=== PATIENT | female | born 1985 | race Two or more races ===

== ENCOUNTER 2023-05-04 19:54 | Inpatient (IN) | payer OTHER, BC ==
[~2023-05-04] VITALS: Ht 165.1 cm; Wt 57.2 kg
[2023-05-04 19:57] VITALS: O2SAT 99
[2023-05-04 21:00] LABS: BASOPHILS % 0.6 % (0.0-2.0); DIFFERENTIAL COMMENT 0; EOSINOPHILS % 3.2 % (0.0-5.0); HEMOGLOBIN. 12.1 g/dL (12.0-16.0); LYMPHOCYTES % 14.9 % (20.0-50.0); MEAN CORPUSCULAR HEMOGLOBIN 24.8 pg (28.0-32.0); MEAN CORPUSCULAR HGB CONC 31.8 g/dL (31.0-37.0); MEAN CORPUSCULAR VOLUME 77.9 fL (81.0-99.0); MONOCYTES % 7.1 % (2.0-8.0); NEUTROPHILS % 74.2 % (40.0-76.0); PLATELET 427 x1000/uL (130-400); RED BLOOD CELL COUNT 4.87 mill/uL (4.2-5.4); RED CELL DISTRIBUTION WIDTH 18.2 % (11.6-14.6); WHITE BLOOD COUNT 13.5 x1000/uL (4.5-11.0)
[2023-05-04 21:18] LABS: ALANINE AMINOTRANSFERASE 8 IU/L (10-49); ALBUMIN 4.3 g/dL (3.2-4.8); ASPARTATE AMINOTRANSFERASE 18 IU/L (<34); BILIRUBIN TOTAL 1.2 mg/dL (0.1-1.0); CALCIUM 9.6 mg/dL (8.7-10.4); CARBON DIOXIDE 28 mEq/L (21-32); CHLORIDE 104 mEq/L (98-107); CREATININE 0.7 mg/dL (0.6-1.0); GLUCOSE 97 mg/dL (70-105); POTASSIUM 3.9 mEq/L (3.5-5.1); PROTEIN TOTAL 6.9 g/dL (6.0-8.3); SODIUM 139 mEq/L (136-145); UREA NITROGEN BLOOD 10 mg/dL (9-23)
[2023-05-04 21:22] LABS: PARTIAL THROMBOPLASTIN TIME 28.3 sec (23.4-31.0); PROTHROMBIN TIME 10.4 sec (9.6-11.0)
[2023-05-04 21:34] LABS: HCG SCREEN NEGATIVE
[2023-05-04 21:45] LABS: TROPONIN I HIGH SENSITIVITY < 4 ng/L (3.0-34)
[2023-05-04] MEDS ORDERED: HEPARIN 5000 UNITS/ML VIAL IV ONE (22:00)
[2023-05-04] MEDS ORDERED: HEPARIN 25,000 UNITS PREMIX 250 ML IV ONE (22:00)
[2023-05-04] MEDS ORDERED: IOHEXOL-350 100 ML BOTTLE ONE (22:02)
[2023-05-04] MEDS ORDERED: MORPHINE SULFATE 4 MG/ML CPJ (NOT FOR IM USE) IV ONE (22:15)
[2023-05-04] MEDS ORDERED: HEPARIN 25,000 UNITS PREMIX 250 ML IV SCH ×2 (22:30→23:00)
[2023-05-04] MEDS ORDERED: HEPARIN BOLUS PRN aPTT 37-44 IV (22:30)
[2023-05-04] MEDS ORDERED: HEPARIN 80 UNITS/KG BOLUS IV NR (22:30)
[2023-05-04] MEDS ORDERED: HEPARIN BOLUS PRN aPTT <36 IV (22:30)
[2023-05-04] MEDS ORDERED: ONDANSETRON HCL 4MG/2ML INJ IV ONE (22:45)
[2023-05-04] MEDS ORDERED: ACETAMINOPHEN 650MG/20.3ML UDC GT PRN (23:30)
[2023-05-04] MEDS ORDERED: DOCUSATE SODIUM 100MG CAPSULE PO PRN (23:30)
[2023-05-04] MEDS ORDERED: IPRATROPIUM/ALBUTEROL 0.5-3(2.5)MG/3ML NEB HHN PRN (23:30)
[2023-05-04] MEDS ORDERED: ACETAMINOPHEN 325MG TABLET PO PRN (23:30)
[2023-05-04] MEDS ORDERED: MAGNESIUM/ALUMINUM HYDROXIDE/SIMETHICONE 30ML UDC PO PRN (23:30)
[2023-05-04] MEDS ORDERED: CLONIDINE 0.1MG TABLET PO PRN (23:30)
[2023-05-04] MEDS ORDERED: GUAIFENESIN 200MG/10ML SUGAR FREE UDC PO PRN (23:30)
[2023-05-04] MEDS ORDERED: ONDANSETRON HCL 4MG/2ML INJ IV PRN (23:30)
[2023-05-05] MEDS: KETOROLAC 15MG/ML VIAL IV PRN ×4 (01:47→20:36)
[2023-05-05 05:43] LABS: BASOPHILS % 0.5 % (0.0-2.0); DIFFERENTIAL COMMENT 0; HEMATOCRIT. 35.6 % (36.0-48.0); HEMOGLOBIN. 11.2 g/dL (12.0-16.0); MEAN CORPUSCULAR HEMOGLOBIN 23.9 pg (28.0-32.0); MEAN CORPUSCULAR HGB CONC 31.4 g/dL (31.0-37.0); MEAN CORPUSCULAR VOLUME 76.1 fL (81.0-99.0); MEAN PLATELET VOLUME 8.4 fl (7.4-10.4); MONOCYTES % 6.4 % (2.0-8.0); NEUTROPHILS % 70.1 % (40.0-76.0); PLATELET 377 x1000/uL (130-400); RED BLOOD CELL COUNT 4.68 mill/uL (4.2-5.4); RED CELL DISTRIBUTION WIDTH 18.4 % (11.6-14.6); WHITE BLOOD COUNT 13.8 x1000/uL (4.5-11.0)
[2023-05-05 06:02] LABS: ALANINE AMINOTRANSFERASE < 7 IU/L (10-49); ALBUMIN 3.9 g/dL (3.2-4.8); ASPARTATE AMINOTRANSFERASE 15 IU/L (<34); BILIRUBIN TOTAL 1.2 mg/dL (0.1-1.0); CALCIUM 8.9 mg/dL (8.7-10.4); CARBON DIOXIDE 26 mEq/L (21-32); CHLORIDE 105 mEq/L (98-107); CREATINE KINASE 49 IU/L (34-145); CREATININE 0.6 mg/dL (0.6-1.0); GLUCOSE 96 mg/dL (70-105); POTASSIUM 3.8 mEq/L (3.5-5.1); PROTEIN TOTAL 6.4 g/dL (6.0-8.3); SODIUM 138 mEq/L (136-145); UREA NITROGEN BLOOD 10 mg/dL (9-23)
[2023-05-05 06:21] LABS: TROPONIN I HIGH SENSITIVITY < 4 ng/L (3.0-34)
[2023-05-05 16:00] VITALS: BP 121/80; PULSE 97; RESP 19; TEMP 97.7
[2023-05-05 16:51] VITALS: BP 121/80; PULSE 94; RESP 24; TEMP 97.8
[2023-05-05 18:00] VITALS: BP 106/67; PULSE 91; RESP 18; TEMP 97.6
[2023-05-05 18:31] LABS: CREATINE KINASE 58 IU/L (34-145)
[2023-05-05 18:43] LABS: TROPONIN I HIGH SENSITIVITY < 4 ng/L (3.0-34)
[2023-05-05 20:00] VITALS: BP 116/76; PULSE 75; RESP 20; TEMP 97.3
[2023-05-05] MEDS ORDERED: FAMOTIDINE 20MG TABLET PO SCH (21:00)
[2023-05-05 22:00] VITALS: BP 112/66; PULSE 62; RESP 20
[2023-05-06] VITALS (9 sets, daily range): BP systolic 100–120; BP diastolic 65–89; PULSE 56–87; RESP 14–18; TEMP 97.1–97.9
[2023-05-06] MEDS: KETOROLAC 15MG/ML VIAL IV PRN ×2 (03:04→12:13)
[2023-05-06 03:21] LABS: ALANINE AMINOTRANSFERASE < 7 IU/L (10-49); ALBUMIN 3.6 g/dL (3.2-4.8); ASPARTATE AMINOTRANSFERASE 15 IU/L (<34); BILIRUBIN TOTAL 0.9 mg/dL (0.1-1.0); CALCIUM 8.7 mg/dL (8.7-10.4); CARBON DIOXIDE 28 mEq/L (21-32); CHLORIDE 104 mEq/L (98-107); CREATININE 0.7 mg/dL (0.6-1.0); GLUCOSE 86 mg/dL (70-105); PHOSPHORUS 5.3 mg/dL (2.5-4.9); PROTEIN TOTAL 6.6 g/dL (6.0-8.3); SODIUM 139 mEq/L (136-145); UREA NITROGEN BLOOD 11 mg/dL (9-23)
[2023-05-06 03:35] LABS: BASOPHILS % 1.5 % (0.0-2.0); EOSINOPHILS % 5.7 % (0.0-5.0); HEMOGLOBIN. 11.1 g/dL (12.0-16.0); LYMPHOCYTES % 25.8 % (20.0-50.0); MEAN CORPUSCULAR HEMOGLOBIN 24.9 pg (28.0-32.0); MEAN CORPUSCULAR HGB CONC 31.8 g/dL (31.0-37.0); MEAN CORPUSCULAR VOLUME 78.3 fL (81.0-99.0); MONOCYTES % 8.2 % (2.0-8.0); NEUTROPHILS % 58.8 % (40.0-76.0); RED BLOOD CELL COUNT 4.47 mill/uL (4.2-5.4); RED CELL DISTRIBUTION WIDTH 18.4 % (11.6-14.6); WHITE BLOOD COUNT 8.1 x1000/uL (4.5-11.0)
[2023-05-06 03:50] LABS: DIFFERENTIAL COMMENT 1
[2023-05-06 09:26] LABS: PLATELET 357 x1000/uL (130-400)
== END 2023-05-06 19:07 | disposition short-term general hospital (02) | DRG 776 ==
LOC: ER 19:54 → MICUSO 22:11 → EDBEDREQTM 22:18 → EDBEDREQSVC 22:18 → ENRESERV 05-05 15:40 → 5EST 05-05 15:44
PROVIDERS: ADMIT Internal Medicine; ATTEND Internal Medicine
DX: O88.23 Thromboembolism in the puerperium (principal); O99.13 Other diseases of the blood and blood-forming organs and certain disorders involving the immune mechanism complicating the puerperium; D68.59 Other primary thrombophilia; O99.285 Endocrine, nutritional and metabolic diseases complicating the puerperium; O99.53 Diseases of the respiratory system complicating the puerperium; E80.6 Other disorders of bilirubin metabolism; D72.829 Elevated white blood cell count, unspecified; D75.839 Thrombocytosis, unspecified; Z20.822 Contact with and (suspected) exposure to COVID-19
CPT/HCPCS: 36415; 71045; 71275; 80053; 82550; 83735; 83880; 84100; 84484; 84703; 85025; 87426; 93005; 93306; 99291; J1644; J1885; J2270; J2405; Q9967